=== PATIENT | male | born 1985 | race African-American/Black ===

== ENCOUNTER 2020-01-09 12:24 | Emergency (ER) | payer MEDICAID ==
[~2020-01-09] VITALS: Ht 180.3 cm; Wt 91.0 kg
[2020-01-09 12:40] VITALS: BP 132/67
[2020-01-09] MEDS ORDERED: IBUPROFEN 600MG TABLET PO ONE (13:45)
== END 2020-01-09 15:36 | disposition home or self-care (01) ==
LOC: ER 12:48
DX: S09.8XXA Other specified injuries of head, initial encounter (principal); W18.2XXA Fall in (into) shower or empty bathtub, initial encounter; Y93.E1 Activity, personal bathing and showering; Y92.012 Bathroom of single-family (private) house as the place of occurrence of the external cause
CPT/HCPCS: 99284